=== PATIENT | male | born 1985 | race African-American/Black ===

== ENCOUNTER 2016-11-11 02:09 | Emergency (ER) | payer SELFPAY ==
[~2016-11-11] VITALS: Ht 177.8 cm; Wt 85.3 kg
[2016-11-11 02:43] LABS: BASO # 0.1 x10^3/uL (0.0-0.2); BASO % 1 % (0-3); EOS % 1 % (0-3); HEMATOCRIT 41.2 % (39.0-53.0); LYMPH # 2.5 x10^3/uL (1.0-4.8); LYMPH % 26 % (24-48); MEAN CORPUSCULAR HEMOGLOBIN 31 pg (25-35); MEAN CORPUSCULAR HGB CONC 34 g/dL (31-37); MEAN CORPUSCULAR VOLUME 92 fL (79-100); MONO % 8 % (0-9); NEUT % 64 % (31-73); PLATELET COUNT 149 x10^3/uL (140-400); RED BLOOD COUNT 4.47 x10^6/uL (4.30-5.70); RED CELL DISTRIBUTION WIDTH 12.6 % (11.5-14.5); WHITE BLOOD COUNT 9.8 x10^3/uL (4.0-11.0)
[2016-11-11 03:06] LABS: BILIRUBIN,URINE NEGATIVE (NEG); GLUCOSE,URINE NEGATIVE (NEG); NITRITE,URINE NEGATIVE (NEG); PH,URINE 7.5; PROTEIN,URINE NEGATIVE (NEG-TRACE)
[2016-11-11 03:08] LABS: CALCIUM 9.3 mg/dL (8.5-10.1); CREATININE 1.1 mg/dL (0.7-1.3); GFR 95.1; POTASSIUM 3.8 mmol/L (3.5-5.1)
--- NOTE | 2016-11-11 03:11 | RAD ---
PROCEDURE Right upper quadrant ultrasound HISTORY 31-year-old male with epigastric pain for years which has worsened tonight, evaluate the gallbladder. TECHNIQUE Transverse and longitudinal sonography of the right upper quadrant is performed. COMPARISON None FINDINGS The pancreas is obscured by overlying bowel gas. IVC is documented. Liver demonstrates normal contour and echogenicity. Main portal vein demonstrates normal directional flow. The liver measures 14.8 cm. No intraluminal gallstones, wall thickening or pericholecystic fluid is seen. The gallbladder is not distended. Common bile duct measures 4 millimeters in diameter. Right kidney measures 9.6 x 4.4 by 4.4 cm, without hydronephrosis or definite nephrolithiasis. No free fluid is seen within the provided images. IMPRESSION Normal right upper quadrant ultrasound, specifically no cholelithiasis. Electronically signed by: Katie Nelson (Nov 11, 2016 03:09:55)
[2016-11-11 03:13] LABS: ALBUMIN 4.4 g/dL (3.4-5.0); ALBUMIN/GLOBULIN RATIO 1.5 (1.0-1.7); TOTAL BILIRUBIN 0.5 mg/dL (0.2-1.0); TOTAL PROTEIN 7.4 g/dL (6.4-8.2)
[2016-11-11 03:43] LABS: BACTERIA,URINE 0 /HPF (0-FEW); SQUAMOUS EPITHELIAL CELL,UR OCC /LPF; WBC,URINE OCC /HPF (0-4)
[2016-11-11] MEDS ORDERED: OMEP20CA9 PO (03:48)
--- NOTE | 2016-11-11 03:49 | PHYS DOC ---
Past Medical History Past Medical History: Other Additional Past Medical Histor: ULCERS Past Surgical History: No Surgical History Alcohol Use: Rarely Drug Use: Marijuana Adult General Chief Complaint Chief Complaint: ABDOMINAL PAIN HPI HPI 31-year-old male presenting to the emergency department today with epigastric abdominal pain that is burning nonradiating moderate and worse with laying down. Also worse at night. He denies nausea vomiting and diarrhea. He denies chest pain or shortness of breath. He denies fevers or chills. Review of Systems Review of Systems ROS negative for chest pain shortness of breath. Negative for fevers or chills. All other review of systems is negative unless otherwise noted in history of present illness. Current Medications Current Medications Current Medications Medications (Trade) Dose Ordered Sig/Desirae Start Time Stop Time Status Last Admin Dose Admin Famotidine (Pepcid) 20 mg 1X ONCE 11/11/16 04:15 11/11/16 04:16 DC 11/11/16 04:03 20 MG Multi-Ingredient Mouthwash/Gargle (Gi Cocktail Single Dose) 15 ml 1X ONCE 11/11/16 04:15 11/11/16 04:16 DC 11/11/16 04:03 15 ML Allergies Allergies Allergies Coded Allergies Type Severity Reaction Last Updated Verified No Known Drug Allergies 02/10/14 No Physical Exam Physical Exam Constitutional: Well developed, well nourished, no acute distress, non-toxic appearance. HENT: Normocephalic, atraumatic, bilateral external ears normal, oropharynx moist, no oral exudates, nose normal. [] Eyes: PERRLA, EOMI, conjunctiva normal, no discharge. Neck: Normal range of motion, no tenderness, supple, no stridor. [] Cardiovascular:Heart rate regular rhythm, no murmur [] Lungs & Thorax: Bilateral breath sounds clear to auscultation Abdomen: Soft nontender abdomen without rebound tenderness or guarding present. Negative McBurneys point. Negative Villa sign. No ecchymosis present. Skin: Warm, dry, no erythema, no rash. Back: No tenderness, no CVA tenderness. [] Extremities: No tenderness, no cyanosis, no clubbing, ROM intact, no edema. Neurologic: Alert and oriented X 3, normal motor function, normal sensory function, no focal deficits noted. Psychologic: Affect normal, judgement normal, mood normal. [] Current Patient Data Vital Signs Vital Signs Date Time Temp Pulse Resp B/P Pulse Ox O2 Delivery O2 Flow Rate FiO2 11/11/16 04:00 76 18 117/65 98 Room Air 11/11/16 02:15 98.3 98.3 Lab Values Laboratory Tests Test 11/11/16 02:30 11/11/16 02:55 White Blood Count 9.8x10^3/uL (4.0-11.0) Red Blood Count 4.47x10^6/uL (4.30-5.70) Hemoglobin 14.0g/dL (13.0-17.5) Hematocrit 41.2% (39.0-53.0) Mean Corpuscular Volume 92fL (79-100) Mean Corpuscular Hemoglobin 31pg (25-35) Mean Corpuscular Hemoglobin Concent 34g/dL (31-37) Red Cell Distribution Width 12.6% (11.5-14.5) Platelet Count 149x10^3/uL (140-400) Neutrophils (%) (Auto) 64% (31-73) Lymphocytes (%) (Auto) 26% (24-48) Monocytes (%) (Auto) 8% (0-9) Eosinophils (%) (Auto) 1% (0-3) Basophils (%) (Auto) 1% (0-3) Neutrophils # (Auto) 6.3x10^3uL (1.8-7.7) Lymphocytes # (Auto) 2.5x10^3/uL (1.0-4.8) Monocytes # (Auto) 0.8x10^3/uL (0.0-1.1) Eosinophils # (Auto) 0.1x10^3/uL (0.0-0.7) Basophils # (Auto) 0.1x10^3/uL (0.0-0.2) Sodium Level 141mmol/L (136-145) Potassium Level 3.8mmol/L (3.5-5.1) Chloride Level 103mmol/L (98-107) Carbon Dioxide Level 28mmol/L (21-32) Anion Gap 10 (6-14) Blood Urea Nitrogen 13mg/dL (8-26) Creatinine 1.1mg/dL (0.7-1.3) Estimated GFR (Cockcroft-Gault) 95.1 BUN/Creatinine Ratio 12 (6-20) Glucose Level 106mg/dL (70-99) H Calcium Level 9.3mg/dL (8.5-10.1) Total Bilirubin 0.5mg/dL (0.2-1.0) Aspartate Amino Transferase (AST) 18U/L (15-37) Alanine Aminotransferase (ALT) 19U/L (16-63) Alkaline Phosphatase 71U/L (46-116) Troponin I Quantitative < 0.017ng/mL (0.000-0.055) Total Protein 7.4g/dL (6.4-8.2) Albumin 4.4g/dL (3.4-5.0) Albumin/Globulin Ratio 1.5 (1.0-1.7) Lipase 257U/L (73-393) Urine Collection Type Unknown Urine Color Yellow Urine Clarity Clear Urine pH 7.5 Urine Specific Ulysses 1.015 Urine Protein Negativemg/dL (NEG-TRACE) Urine Glucose (UA) Negativemg/dL (NEG) Urine Ketones (Stick) Negativemg/dL (NEG) Urine Blood Negative (NEG) Urine Nitrite Negative (NEG) Urine Bilirubin Negative (NEG) Urine Urobilinogen Dipstick 1.0mg/dL (0.2 mg/dL) Urine Leukocyte Esterase Negative (NEG) Urine RBC 3-5/HPF (0-2) Urine WBC Occ/HPF (0-4) Urine Squamous Epithelial Cells Occ/LPF Urine Bacteria 0/HPF (0-FEW) Urine Mucus Slight/LPF Laboratory Tests 11/11/16 02:30 Laboratory Tests 11/11/16 02:30 EKG EKG []EKG shows sinus rhythm with regular rate. Normal intervals. Normal axis. ST segments are congruent. Not suggestive of ACS. Reviewed by myself. Radiology/Procedures Radiology/Procedures [] Course & Med Decision Making Course & Med Decision Making Pertinent Labs and Imaging studies reviewed. (See chart for details) 31-year-old male presenting to the emergency department today with epigastric abdominal pain. Vital signs were unremarkable. Physical exam showed a nontender abdomen. Ultrasound of the gallbladder unremarkable. Labs unremarkable. Patient was given GI cocktail and antacid medication in discharged home with omeprazole. Follow up with PCP in 3-5 days. Dragon Disclaimer Dragon Disclaimer This electronic medical record was generated, in whole or in part, using a voice recognition dictation system. Departure Departure Impression: Primary Impression: Gastritis Disposition: 01 HOME, SELF-CARE Condition: STABLE Referrals: NO PCP (PCP) WALLACE PEACOCK MD Patient Instructions: Abdominal Pain (Nonspecific) Additional Instructions: Thank you for allowing us to participate in your care today. Followup with your primary care physician in 3 days if your symptoms do not improve. If you do not have a primary care provider you can ask for a list of our primary care providers. Return to the emergency department you have any new or concerning findings. This should be evaluated by the primary care physician and any necessary consulting services for continued management within a few days after discharge. Return to emergency room if you have any new or concerning symptoms including but not limited to fever, chills, nausea, vomiting, intractable pain, any new rashes, chest pain, shortness of air, uncontrolled bleeding, difficulty breathing, and/or vision loss. Scripts Omeprazole 20 Mg Capsule.dr1 Cap PO DAILY #30 CAP Prov:MARQUES PA MD 11/11/16 MARQUES PA MD Nov 11, 2016 03:49
[2016-11-11 04:00] VITALS: BP 117/65
[2016-11-11] MEDS ORDERED: LIDO:MAALOX:DONNATAL 1:1:1 15 ML SINGLE DOSE SWSW ONE (04:15)
[2016-11-11] MEDS ORDERED: FAMOTIDINE 20 MG TABLET. PO ONE (04:15)
--- NOTE | 2016-11-11 06:13 | EKG ---
[facility] [address] [place] [address] Test Date: 2016-11-11 Test Time: 02:29:47 Pat Name: DEEP WILSON Department: Room: Gender: M Rn [facility]: : 1985 Requested By: MARQUES PA Order Number: [id number] Reading MD: Reid Randolph Measurements Intervals Morris Rate: 74 P: 59 MT: 154 QRS: 42 QRSD: 82 T: 25 QT: 344 QTc: 387 Interpretive Statements SINUS RHYTHM Electronically Signed On 11-11-2016 15:48:37 [employer] by Reid Randolph
== END 2016-11-11 04:05 | disposition home or self-care (01) ==
LOC: ER 02:09
DX: K29.70 Gastritis, unspecified, without bleeding (principal); F12.90 Cannabis use, unspecified, uncomplicated
CPT/HCPCS: 36415; 76705; 80053; 81001; 83690; 84484; 85027; 93005; 99285-25